=== PATIENT | female | born 1975 | race Caucasian/White ===

== ENCOUNTER → 2017-08-27 | Outpatient (CLI) | payer BC ==
--- NOTE | 2017-08-27 13:56 | Diagnostic Imaging Report ---
INDICATION: Abnormal uterine bleeding. TECHNIQUE: Multiple real time siddiqui scale sonographic images were obtained of the pelvis transabdominally and transvaginally. CORRELATION STUDY: None FINDINGS: UTERUS/ENDOMETRIUM: Uterus measures 8.5 x 5.0 x 4.0 cm. Endometrial thickness is 6 mm. There is a small hypoechoic fluid collection perhaps a cyst along the anterior aspect of the uterus adjacent to endometrium measuring 5 mm. Additional one posteriorly 4 mm. RIGHT OVARY: 1.7 x 2.6 x 1.5 cm. LEFT OVARY: 4.1 x 3.0 x 3.5 cm. Hypoechoic mass of the left ovary compatible with cyst at 3 cm in size. In addition, a few small peripheral follicles present. Vascular flow is demonstrated to both ovaries. Presence of small amount of free pelvic fluid. IMPRESSION: 1. Endometrial thickness overall within normal limits. There is however two small hypoechoic cystic or fluid collections just deep to the endometrium present. These are nonspecific and can be demonstrated with various entities. Would recommend followup imaging to be obtained, preferably in a different phase of patient's menstrual cycle for reassessment. Dominant left ovarian cyst as well as free pelvic fluid, likely physiologic but could also be followed up on repeat imaging. Dictated by: Dictated on workstation # [id number]
== END ==
LOC: RAD 10:43
PROVIDERS: ATTEND Obstetrics & Gynecology
DX: Z12.31 Encounter for screening mammogram for malignant neoplasm of breast; R93.8 Abnormal findings on diagnostic imaging of other specified body structures; N83.202 Unspecified ovarian cyst, left side
CPT/HCPCS: 76830; 76856; 77067

== ENCOUNTER → 2019-08-04 | Outpatient (CLI) | payer BC ==
--- NOTE | 2019-08-04 13:01 | Diagnostic Imaging Report ---
INDICATION: Routine screening. COMPARISON: 08/27/2017 and 10/23/2015. TECHNIQUE: 2D and 3D bilateral screening mammography was performed with CAD. FINDINGS: Both breasts are heterogeneously dense, limiting the sensitivity of mammography. The parenchymal pattern is stable. No mass or malignant appearing microcalcifications are seen. The axillae are unremarkable. IMPRESSION: No mammographic features suspicious for malignancy are identified. ACR BI-RADS Category 1: Negative. Result letter will be mailed to the patient. Note: At least 10% of breast cancer is not imaged by mammography. Dictated by: Dictated on workstation # [id number]
== END ==
LOC: RAD 10:08
PROVIDERS: ATTEND Obstetrics & Gynecology
DX: Z12.31 Encounter for screening mammogram for malignant neoplasm of breast (principal)
CPT/HCPCS: 77067

== ENCOUNTER → 2020-08-17 | Outpatient (CLI) | payer BC ==
--- NOTE | 2020-08-21 08:39 | Diagnostic Imaging Report ---
Digital mammogram. Bilateral screening This study was compared to the prior exam of 08/04/2019, 08/27/2017 and 10/23/2015. At this time there are no current complaints. The current study was also evaluated with a Computer Aided Detection (CAD) system. FINDINGS: The fibroglandular tissue in both breasts is heterogeneously dense. This does limit the sensitivity of this exam. Overall, there does not appear to have been any significant change when compared to the prior study. No primary or secondary sign of malignancy is noted. IMPRESSION: There is no radiographic evidence for malignancy. ACR BI-RADS Category 1: Negative. Result letter will be mailed to the patient. Note: At least 10% of breast cancer is not imaged by mammography. Dictated by: Dictated on workstation # [id number]
== END ==
LOC: RAD 12:12
PROVIDERS: ATTEND Obstetrics & Gynecology
DX: Z12.31 Encounter for screening mammogram for malignant neoplasm of breast (principal)
CPT/HCPCS: 77063; 77067

== ENCOUNTER → 2021-11-02 | Outpatient (CLI) | payer BC ==
--- NOTE | 2021-11-02 15:49 | Diagnostic Imaging Report ---
INDICATION: Routine screening. Comparison is made with prior mammogram from 08/17/2020 and 08/04/2019. 2-D and 3-D bilateral screening mammography was performed with CAD. Both breasts are heterogeneously dense, limiting the sensitivity of mammography. There is a density in the central left breast at the nipple line on the CC view which appears more prominent than prior exam. No definite corresponding density on the MLO view is seen. No malignant-appearing microcalcifications are identified. Axillae are unremarkable. IMPRESSION: Left breast density. Additional views recommended for further evaluation. BI-RADS 0 ACR BI-RADS Category 0: Incomplete. (Needs additional imaging evaluation). Result letter will be mailed to the patient. Note: At least 10% of breast cancer is not imaged by mammography. Dictated by: Dictated on workstation # [id number]
== END ==
LOC: RAD 11:30
PROVIDERS: ATTEND Obstetrics & Gynecology
DX: Z12.31 Encounter for screening mammogram for malignant neoplasm of breast (principal)
CPT/HCPCS: 77063; 77067

== ENCOUNTER → 2021-11-28 | Outpatient (CLI) | payer BC ==
--- NOTE | 2021-11-28 15:19 | Diagnostic Imaging Report ---
EXAMINATION: Left breast ultrasound limited. INDICATION: Abnormal mammogram. FINDINGS: The screening mammogram performed on 11/02/2021 noted a density in the central left breast at the nipple line. This was only seen on the CC view. The diagnostic mammogram performed prior to this study failed to show any evidence for malignancy. On this study, there is no discrete solid or cystic mass to correspond to the finding on the mammogram. I suspect that the density seen on the mammogram was related to superimposition of the heterogeneously dense fibroglandular tissue. Even so, it may prove worthwhile to have a short-term (6 month) followup mammogram of the left breast for continued evaluation. IMPRESSION: There is no evidence for malignancy. Recommendations as above. ACR BI-RADS Category 3: Probably benign findings. Result letter will be mailed to the patient. Note: At least 10% of breast cancer is not imaged by mammography. Dictated by: Dictated on workstation # [id number]
--- NOTE | 2021-11-29 15:56 | Diagnostic Imaging Report ---
Unilateral diagnostic left mammogram INDICATION: Abnormal screening mammogram The screening mammogram performed on 11/02/2021 noted a density in the central left breast at the nipple line on the CC view. There was no corresponding abnormality seen on the MLO view. On the compression views of this area in the CC projection, that density is not as conspicuous. This finding cannot be identified with certainty on the true lateral views either. I suspect it is related to fibroglandular tissue alone. Even so, I would recommend that ultrasound be performed for further study. IMPRESSION: There is no evidence of malignancy. Recommendations as above. ACR BI-RADS Category 0: Incomplete. (Needs additional imaging evaluation). Result letter will be mailed to the patient. Note: At least 10% of breast cancer is not imaged by mammography. Dictated by: Dictated on workstation # [id number]
== END ==
LOC: RAD 13:15
PROVIDERS: ATTEND Obstetrics & Gynecology
DX: R92.8 Other abnormal and inconclusive findings on diagnostic imaging of breast (principal)
CPT/HCPCS: 76642; 77065; G0279

== ENCOUNTER → 2023-04-28 | Outpatient (CLI) | payer BC ==
--- NOTE | 2023-04-28 11:46 | Diagnostic Imaging Report ---
Indication: Routine screening. Comparison is made with prior mammogram from 11/02/2021 and 08/17/2020. 2-D and 3-D bilateral screening mammography was performed with CAD. CAD is utilized. The current study was also evaluated with a Computer Aided Detection (CAD) system. Both breasts are heterogeneously dense, limiting the sensitivity of mammography. The parenchymal pattern is stable. No dominant mass or malignant-appearing microcalcifications are seen. Axillae are unremarkable. IMPRESSION: BI-RADS Category 1 No mammographic features suspicious for malignancy are identified. ACR BI-RADS Category 1: Negative. Result letter will be mailed to the patient. Note: At least 10% of breast cancer is not imaged by mammography. Dictated by: Dictated on workstation # [id number]
== END ==
LOC: RAD 08:36
PROVIDERS: ATTEND Obstetrics & Gynecology
DX: Z12.31 Encounter for screening mammogram for malignant neoplasm of breast (principal)
CPT/HCPCS: 77063; 77067